=== PATIENT | male | born 1975 | race Caucasian/White ===

== ENCOUNTER 2020-02-02 14:07 | Observation (INO) | payer BC, OTHER, SELFPAY ==
[2020-02-02] MEDS ORDERED: Meclizine HCl 25 MG TAB ONE (14:44)
[2020-02-02 14:58] LABS: #Eosinphils 0.2 thou/uL (0.0-0.7); #Lymphocytes 1.4 thou/uL (1.20-3.40); #Monocytes 0.5 thou/uL (0.11-0.59); #Neutrophils 3.4 thou/uL (1.40-6.50); %Basophils 0.9 % (0.0-1.0); %Eosinophils 4.4 % (0.0-10.0); %Lymphocytes 24.9 % (21.0-51.0); %Monocytes 9.3 % (0.0-10.0); %Neutrophils 60.5 % (42.0-75.0); Hemoglobin 13.9 g/dL (14.0-18.0); Mean Corpuscular HGB CONC 33.3 g/dL (32.0-36.0); Mean Corpuscular Hemoglobin 30.5 pg (27.0-31.0); Mean Corpuscular Volume 91.4 fL (78.0-98.0); Platelet Count 281 thou/uL (130-400); RBC Distribution Width 11.9 % (11.5-14.5); Red Blood Cell (RBC) Count 4.57 mill/uL (4.70-6.10); White Blood Cell (WBC) Count 5.6 thou/uL (4.8-10.8)
[2020-02-02 15:13] LABS: ALT (SGPT) 23 U/L (8-55); AST (SGOT) 16 U/L (5-34); Albumin 4.6 g/dL (3.5-5.0); Alkaline Phosphatase 150 U/L (40-110); Anion Gap 12 mmol/L (10-20); BUN (Urea Nitrogen) 7 mg/dL (8.9-20.6); Bilirubin, Total 0.2 mg/dL (0.2-1.2); Calc. Creatinine Clearance 0 mL/min (70-130); Calcium 9.9 mg/dL (7.8-10.44); Carbon Dioxide 29 mmol/L (22-29); Chloride 100 mmol/L (98-107); Estimated GFR-MDRD Greater than 90; Globulin 3.7 g/dL (2.4-3.5); Glucose 159 mg/dL (70-105); Potassium 4.4 mmol/L (3.5-5.1); Protein, Total 8.3 g/dL (6.0-8.3); Sodium 137 mmol/L (136-145)
[2020-02-02 15:20] LABS: Acetaminophen Less than 6.0 mcg/mL (10.0-30.0); Alcohol Less than 10 mg/dL (Less than 10); CK (CPK) 96 U/L (30-200); Salicylate Less than 8.0 mg/dL (15.0-30.0)
--- NOTE | 2020-02-02 15:22 | CT ---
CT HEAD WITHOUT IV CONTRAST COMPARISON: None. HISTORY: Dizziness. Slow to respond. TECHNIQUE: Axial CT imaging at 5 mm intervals from vertex through skull base without contrast FINDINGS: There is no evidence of an acute infarction, hemorrhage, mass effect, or midline shift. The ventricul ar system is normal in size, shape, and position. Visualized paranasal sinuses are clear. Osseous structures appear intact. IMPRESSION: 1. No acute intracranial abnormality demonstrated.
[2020-02-02 16:09] LABS: Bilirubin Negative (Negative); Blood, Urine Negative (Negative); Clarity Clear (Clear); Glucose, Urine (Dipstick) Normal (Negative); Ketone, Urine Negative (Negative); Leukocyte Negative Leu/uL (Negative); Nitrite Negative (Negative); Protein, Urine (Dipstick) Negative (Neg-Trace); Specific Gravity, Urine 1.005 (1.002-1.036); Urobilinogen Normal mg/dL (Less than 2); pH, Urine 6.5 (5.0-9.0)
[2020-02-02 16:20] LABS: Amphetamine Not Detected (NotDetected); Barbiturates Screen Not Detected (NotDetected); Benzodiazepine Screen Not Detected (NotDetected); Cocaine Metabolite Screen Not Detected (NotDetected); Medtox Control Line Valid? VALID (VALID); Medtox Reader # READER 1; Methadone Not Detected (NotDetected); Methamphetamine Not Detected (NotDetected); Opiate Screen Detected (NotDetected); Oxycodone Screen Not Detected (NotDetected); Phencyclidine (PCP) Not Detected (NotDetected); THC/Cannabinoid Screen Not Detected (NotDetected); Tricyclic Screen Not Detected (NotDetected)
--- NOTE | 2020-02-02 16:54 | PDOC.FPRHP ---
- History of Present Illness Chief Complaint: Dizziness History of Present Illness: Pt is a 44 yo man with PMH of HTN, DM, and HLD who presents to the ED for 2 days of dizziness. He reports that he was working in the yard Sunday when he became very dizzy. He reports that he went into the house, checked his blood sugar (90), and ate something. This did not improve the dizziness and he reports that he "feels drunk". Both him and his report that he has been moving and speaking very slowly since. He also reports an abnormal gait. He denies falls, but says that he has been bumping into arshad while walking. Endorses headache, difficulty sleeping, 20 pound weight loss over 7 weeks without change in diet/exercise. Denies weakness or loss of sensation in his extremities. Of note, patient underwent recent back surgery 7 weeks ago. ED Course: Given meclizine in ED. CT ordered while in ED showed no acute intracranial process - Home Medications Medication Instructions Recorded Confirmed Type Amlodipine [Norvasc] 10 mg PO DAILY 02/02/20 02/02/20 History Citalopram [CeleXA] 20 mg PO DAILY 02/02/20 02/02/20 History Lisinopril 20 mg PO DAILY 02/02/20 02/02/20 History Rosuvastatin Calcium [Crestor] 40 mg PO DAILY 02/02/20 02/02/20 History metFORMIN HCl [Metformin HCl] 1,000 mg PO BID 02/02/20 02/02/20 History sitaGLIPtin Phosphate [Januvia] 100 mg PO DAILY 02/02/20 02/02/20 History HYDROcodone/Acetaminophen [[place] 1 tab PO Q24HR PRN 02/03/20 02/03/20 History 10-325 Tablet] - History PMHx: HTN, DM, Gout, Depression PSHx: Knee, wrist, back, neck, tonsils FHx: Mom - DM, CAD Dad - CAD Social: Dips tobacco ~37 years; never smoked cigarettes, minimal alcohol use, denies drug use - Review of Systems General: reports: fever/chills, weight/appetite/sleep changes, night sweats Eyes: denies: eye pain, vision changes ENT: denies: nasal congestion, rhinorrhea Respiratory: denies: cough, congestion, shortness of breath Cardiovascular: denies: chest pain, edema Gastrointestinal: reports: nausea, constipation. denies: vomiting Genitourinary: denies: incontinence, dysuria Skin: denies: rashes, lesions Musculoskeletal: denies: pain, tenderness Neurological: denies: numbness, weakness Psychological: denies: anxiety, depression - Vital signs BP: 129/77 HR: 63 RR: 16 Tmax: 98.7 Pox: 97% on RA Wt: 119 kg - Physical Exam Constitutional: awake, alert and oriented HEENT: normocephalic and atraumatic, PERRLA Neck: supple, FROM, no LAD Heart: RRR, normal S1/S2, no murmurs/rubs/gallops Lungs: CTAB, no respiratory distress, good air movement Abdomen: soft, non-tender, bowel sounds present Musculoskeletal: normal structure, normal tone Neurological: CN II-XII intact -Neurological: Charlie-hallpike: positive for nystagmus on bilateral testing HINTS: Head impulse - central Nystagmus - peripheral Test of Skew - peripheral Normal strength and sensation throughout Ataxic gait not tested due to recent back surgery and risk for fall Skin: no rash/lesions Heme/Lymphatic: no unusual bruising or bleeding, no purpura, no petechia Psychiatric: normal mood and affect, good judgment and insight, intact recent and remote memory FMR H&P: Results - Labs Result Diagrams: 02/03/20 04:41 02/03/20 04:41 Lab results: WBC 5.6 thou/uL (4.8-10.8) 02/02/20 14:36 Hgb 13.9 g/dL (14.0-18.0) L 02/02/20 14:36 Hct 41.8 % (42.0-52.0) L 02/02/20 14:36 MCV 91.4 fL (78.0-98.0) 02/02/20 14:36 Plt Count 281 thou/uL (130-400) 02/02/20 14:36 Neutrophils % 60.5 % (42.0-75.0) 02/02/20 14:36 Sodium 137 mmol/L (136-145) 02/02/20 14:36 Potassium 4.4 mmol/L (3.5-5.1) 02/02/20 14:36 Chloride 100 mmol/L (98-107) 02/02/20 14:36 Carbon Dioxide 29 mmol/L (22-29) 02/02/20 14:36 BUN 7 mg/dL (8.9-20.6) L 02/02/20 14:36 Creatinine 0.89 mg/dL (0.7-1.3) 02/02/20 14:36 Glucose 159 mg/dL (70-105) H 02/02/20 14:36 Calcium 9.9 mg/dL (7.8-10.44) 02/02/20 14:36 Total Bilirubin 0.2 mg/dL (0.2-1.2) 02/02/20 14:36 AST 16 U/L (5-34) 02/02/20 14:36 ALT 23 U/L (8-55) 02/02/20 14:36 Alkaline Phosphatase 150 U/L (40-110) H 02/02/20 14:36 Creatine Kinase 96 U/L (30-200) 02/02/20 14:36 Serum Total Protein 8.3 g/dL (6.0-8.3) 02/02/20 14:36 Albumin 4.6 g/dL (3.5-5.0) 02/02/20 14:36 Urine Ketones Negative mg/dL (Negative) 02/02/20 15:50 Urine Blood Negative (Negative) 02/02/20 15:50 Urine Nitrite Negative (Negative) 02/02/20 15:50 Ur Leukocyte Esterase Negative [place]/uL (Negative) 02/02/20 15:50 FMR H&P: A/P - Problem List (1) HTN (hypertension) Current Visit: Yes Status: Chronic Code(s): I10 - ESSENTIAL (PRIMARY) HYPERTENSION (2) Diabetes Current Visit: Yes Status: Chronic Code(s): E11.9 - TYPE 2 DIABETES MELLITUS WITHOUT COMPLICATIONS (3) Hyperlipidemia Current Visit: Yes Status: Chronic Code(s): E78.5 - HYPERLIPIDEMIA, UNSPECIFIED (4) Tobacco abuse Current Visit: Yes Status: Chronic Code(s): Z72.0 - TOBACCO USE (5) Gout Current Visit: Yes Status: Chronic Code(s): M10.9 - GOUT, UNSPECIFIED (6) Depression Current Visit: Yes Status: Chronic Code(s): F32.9 - MAJOR DEPRESSIVE DISORDER, SINGLE EPISODE, UNSPECIFIED (7) Ataxia Current Visit: Yes Status: Acute Code(s): R27.0 - ATAXIA, UNSPECIFIED (8) GERD (gastroesophageal reflux disease) Current Visit: Yes Status: Chronic Code(s): K21.9 - GASTRO-ESOPHAGEAL REFLUX DISEASE WITHOUT ESOPHAGITIS - Plan Ataxia 2/2 to CVA vs. BPPV vs. Vestibular Neuritis -pt presents with vertigo, ataxia, and multiple stroke risk factors (DM, HTN, HLD) -HINTS: Head impulse - central; Nystagmus - peripheral; Test of Skew - peripheral -Charlie-Hallpike test: positive for nystagmus on bilateral testing -s/p aspirin, meclizine, and 1 NS in ED -outside of the tPA window -CT: no acute intracranial process -MRI ordered, CTA head/neck ordered -Will check TSH, Mag, Phos, Lipid panel -PT, OT, Speech consulted HTN -home lisinopril and amlodipine DM -home metformin and januvia -SSI and hypoglycemia protocol ordered HLD -continue home rosuvastatin Depression -continue home citalopram GERD -continue home prilosec Hx of recent back surgery -continue home pain medication Gout -aware Tobacco abuse -will provide cessation counseling PPx: Lovenox Diet: NPO, pending speech Code: Full PCP: Ce Dispo: Admit to stroke unit; likely LOS < 48 hrs FMR H&P: Upper Level - Plan Date/Time: 02/02/20 [id number] IIzzy, have evaluated this patient and agree with findings/plan as outlined by internal sales resident. Pertinent changes/additions are listed here. HPI: 44 yo M with PMH of HTN, DM2, Gout, tobacco abuse (dip) presents for 2 days of ataxia. Patient reports he was relaxing at home 2 days ago in the afternoon and felt suddenly dizzy. Reports nausea, denies vomiting. States the room appears to move back and forth. His vertigo is worsened by movement. Reports a frontal sinus headache that started today that is minor. Denies weakness, numbness, syncope. Denies any inciting event. Reports his blood sugar was 90. Patient states that he did not come the ED (due to being uninsured) but set up an appointment with his PCP, who sent him to the ER when he had difficulty ambulating out of his vehicle. Pt reported recent back surgery with 20 lb weight loss over the past 7 weeks. Denies night sweats. Does report he occasionally goes from very hot to very cold but denied fever. In the ED, CT head was negative. CXR was wnl. CBC and CMP were unremarkable except for an alk phos of 150. UA was normal. UDS was + for opiates (he takes opiates for his back surgery). EKG showed NSR. PE: VSS. Cardiac: RRR, no murmurs rubs or gallops. Lungs BCTA. Right sided nystagmus. Positive charlie-hallpike exam bilaterally. Hints exam was consistent with peripheral lesion except for head impulse test. A/P: R/O CVA/posterior stroke: -Ataxic gait, postural instability. CT head negative. HINTS exam reassuring. Charlie Hallpike exam positive bilaterally. Otherwise CN exam WNL. Diff dx includes CVA, BPPV, menieres, vestibular neuritis. -Patient is outside of window for any interventions for stroke, >48 hrs since symptoms began -MRI pending, CTA head/neck pending -Mag, Phos, TSH pending -Patient was given ASA, meclizine, 1 L NS -PT/OT/Speech -Resume medications for HTN DM, HTN, HLD: continue home medications. Code status: Patient is full code. PCP: Ce DVT ppx: lovenox Diet: NPO for speech Dispo: Stroke Obs, LOS <48 hours L Criss PRINCE PGY3 See internal sales notes for further details. Addendum - Attending - Attending Attestation Date/Time: 02/03/20 1051 I personally evaluated the patient and discussed the management with the team. I agree with the History, Examination, Assessment and Plan documented above with any addition or exceptions noted below. Await MRI.
[2020-02-02] MEDS ORDERED: Ondansetron ODT 4 MG TAB PO PRN (17:34)
[2020-02-02] MEDS ORDERED: Acetaminophen 325 MG TAB PO PRN (17:34)
[2020-02-02] MEDS ORDERED: Ondansetron PF 4 MG/2 ML Vial IVP PRN (17:34)
[2020-02-02] MEDS ORDERED: Dextrose 50% Abboject 50 ML SYRINGE SLOW IVP PRN (17:34)
[2020-02-02] MEDS ORDERED: Insulin Regular 300 UNITS/3 ML VIAL SC PRN (17:34)
[2020-02-02] MEDS ORDERED: Dextrose 5% in Water 1,000 ML IV PRN (17:34)
[2020-02-02] MEDS ORDERED: Aspirin 325 MG TAB ONE (17:52)
[2020-02-02 18:49] LABS: Magnesium 1.9 mg/dL (1.6-2.6)
--- NOTE | 2020-02-02 20:06 | CT ---
CT ANGIOGRAM HEAD CT ANGIOGRAM NECK: Date: 02-02-2020 History: Dizziness Technique: Axial CT imaging at 1.25 mm intervals obtained from the lung apices through the vertex wit h IV contrast using CT angiogram protocol. Coronal and sagittal 3D reformatted imaging obtained. FINDINGS: The visualized lung apices appear unremarkable. There is polypoid mucosal thickening involving the alveolar recess of bilateral maxillary sinuses. The retro antral fat, parapharyngeal fat, parotid glands and submandibular glands appear grossly unre markable bilaterally. The tonsillar pillars, epiglottis and pre-epiglottic fat, hyoid bone, thyroid c artilage, cricoid cartilage, thyroid gland, and level of glottis appear grossly unremarkable. The origin of the innominate artery, left subclavian artery, left common carotid artery, and right biggs bclavian artery appears unremarkable. The origin of bilateral vertebral arteries appears unremarkable as well. The vertebral arteries appear grossly unremarkable bilaterally. On the basis of NASCET criteria, there is no hemodynamically significant stenosis seen involving the common carotid artery or internal carotid artery on either side. There is mild partially calcified pl aque at the origin of the right internal carotid artery. The M1 segment and the A1 segment appears grossly unremarkable bilaterally. The MCA bifurcation and t he distal MCA branches appear grossly unremarkable. Distal RASHEL branches are unremarkable. The basilar artery and its branches appear patent. No anterior or posterior secular aneurysm, high gr talat stenosis, or vascular occlusion is appreciated. If there is clinical concern for acute infarction, follow up brain MRI is suggested. There is no lymphadenopathy in the neck. No worrisome lytic or blastic bone lesions. There are degenerative changes at the atlantoaxial interspace. There is anterior fusion hardware at C 5-6 and C6-7 and there is hardware at C5-6 and C6-7 within bilateral facet joints. IMPRESSION: 1. No acute findings on CT angiogram of head/neck. POS: OFF
[2020-02-02] MEDS ORDERED: Acetaminophen 325 MG TAB ONE (20:47)
[2020-02-02] MEDS ORDERED: Diazepam 5 MG TAB PO SCH ×3 (21:15→21:30)
[2020-02-02 23:10] VITALS: BMI 34.1
[2020-02-02] MEDS ORDERED: Melatonin 3 MG TAB PO PRN (23:53)
[2020-02-03 04:56] LABS: #Eosinphils 0.3 thou/uL (0.0-0.7); #Lymphocytes 1.7 thou/uL (1.20-3.40); #Monocytes 0.5 thou/uL (0.11-0.59); #Neutrophils 3.1 thou/uL (1.40-6.50); %Basophils 0.3 % (0.0-1.0); %Eosinophils 4.6 % (0.0-10.0); %Lymphocytes 30.5 % (21.0-51.0); %Monocytes 8.2 % (0.0-10.0); %Neutrophils 56.5 % (42.0-75.0); Mean Corpuscular HGB CONC 32.9 g/dL (32.0-36.0); Mean Corpuscular Hemoglobin 29.9 pg (27.0-31.0); Mean Corpuscular Volume 90.9 fL (78.0-98.0); Mean Platelet Volume 8.1 fL (7.4-10.4); Platelet Count 243 thou/uL (130-400); Red Blood Cell (RBC) Count 4.34 mill/uL (4.70-6.10); White Blood Cell (WBC) Count 5.5 thou/uL (4.8-10.8)
[2020-02-03 05:22] LABS: Anion Gap 12 mmol/L (10-20); BUN (Urea Nitrogen) 6 mg/dL (8.9-20.6); Calc. Creatinine Clearance 197 mL/min (70-130); Calcium 9.6 mg/dL (7.8-10.44); Carbon Dioxide 27 mmol/L (22-29); Cardiac Risk 4.2 (Less than 4.5); Chloride 104 mmol/L (98-107); Cholesterol 144 mg/dl (< 200 Desired); Estimated GFR-MDRD Greater than 90; Glucose 132 mg/dL (70-105); HDL Cholesterol 34 mg/dL (>60 Neg Risk); LDL Cholesterol, Calculated 84 mg/dL; Potassium 4.1 mmol/L (3.5-5.1); Sodium 139 mmol/L (136-145); Triglycerides 130 mg/dL (Less than 150)
--- NOTE | 2020-02-03 05:41 | PDOC.FM ---
- Subjective Subjective: Reports difficulty sleeping overnight, continued dizziness, and unsteadiness on his feet. Denies N/V, chest pain, SOB. - Objective MAR Reviewed: Yes Vital Signs & Weight: Vital Signs (12 hours) Temp Pulse Resp BP Pulse Ox 02/03/20 03:57 97.8 F 63 18 134/94 H 98 02/02/20 23:08 97.9 F 58 L 18 143/87 H 97 Weight Weight 123.785 kg Result Diagrams: 02/03/20 04:41 02/03/20 04:41 Phys Exam - Physical Examination Constitutional: NAD Neck: supple, full ROM Respiratory: no wheezing, no rales, no rhonchi, clear to auscultation bilateral Cardiovascular: RRR, no significant murmur Gastrointestinal: soft, non-tender Musculoskeletal: no edema Neurological: normal sensation, moves all 4 limbs continued nystagmus to the right Psychiatric: normal affect Skin: no rash Dx/Plan (1) HTN (hypertension) Code(s): I10 - ESSENTIAL (PRIMARY) HYPERTENSION Status: Chronic (2) Diabetes Code(s): E11.9 - TYPE 2 DIABETES MELLITUS WITHOUT COMPLICATIONS Status: Chronic (3) Hyperlipidemia Code(s): E78.5 - HYPERLIPIDEMIA, UNSPECIFIED Status: Chronic (4) Tobacco abuse Code(s): Z72.0 - TOBACCO USE Status: Chronic (5) Gout Code(s): M10.9 - GOUT, UNSPECIFIED Status: Chronic (6) Depression Code(s): F32.9 - MAJOR DEPRESSIVE DISORDER, SINGLE EPISODE, UNSPECIFIED Status: Chronic (7) Ataxia Code(s): R27.0 - ATAXIA, UNSPECIFIED Status: Acute (8) GERD (gastroesophageal reflux disease) Code(s): K21.9 - GASTRO-ESOPHAGEAL REFLUX DISEASE WITHOUT ESOPHAGITIS Status: Chronic - Plan Plan: Ataxia 2/2 to CVA vs. BPPV vs. Vestibular Neuritis -pt presents with vertigo, ataxia, and multiple stroke risk factors (DM, HTN, HLD) -HINTS: Head impulse - central; Nystagmus - peripheral; Test of Skew - p eripheral -[place]-Hallpike test: positive for nystagmus on bilateral testing -s/p aspirin, meclizine, and 1 NS in ED -outside of the tPA window -CT: no acute intracranial process -CTA head/neck: no acute findings -MRI ordered -TSH, Mag, Phos, Lipid panel all within normal limits -Passed dysphagia testing -q4hr neuro checks HTN -home lisinopril and amlodipine DM -home metformin and januvia -SSI and hypoglycemia protocol ordered HLD -continue home rosuvastatin Depression -continue home citalopram GERD -continue home prilosec Hx of recent back surgery -continue home pain medication Gout -aware Tobacco abuse -will provide cessation counseling PPx: Lovenox Diet: CC Code: Full PCP: Ce Dispo: pending MRI results and further medical management
[2020-02-03] MEDS ORDERED: metFORMIN 500 MG TAB PO SCH (08:00)
[2020-02-03] MEDS ORDERED: Lorazepam 0.5 MG TAB PO SCH (08:15)
[2020-02-03] MEDS ORDERED: Lisinopril 20 MG TAB PO SCH (09:00)
[2020-02-03] MEDS ORDERED: Enoxaparin Sodium 40 MG/0.4 ML SYRINGE SC SCH (09:00)
[2020-02-03] MEDS ORDERED: Alogliptin 25 MG TAB PO SCH (09:00)
[2020-02-03] MEDS ORDERED: Rosuvastatin 20 MG TAB PO SCH (09:00)
[2020-02-03] MEDS ORDERED: Citalopram 20 MG TAB PO SCH (09:00)
[2020-02-03] MEDS ORDERED: Amlodipine 10 MG TAB PO SCH (09:00)
--- NOTE | 2020-02-03 09:24 | MRI ---
MRI BRAIN WITHOUT CONTRAST: HISTORY: CVA, dizziness CORRELATION: CT scan from 02/02/2020. FINDINGS: No restricted diffusion is seen. The ventricular size is appropriate and the basilar cisterns are pat ent. No evidence of acute infarct, hemorrhage, midline shift or abnormal extra-axial fluid collections is seen. There is mucosal disease in the paranasal sinuses. IMPRESSION: No evidence of acute intracranial process.
[2020-02-03] MEDS ORDERED: Polyethylene Glycol 3350 17 GM Packet PO SCH (10:00)
[2020-02-03 11:50] VITALS: BP 112/72; TEMP 98.1
--- NOTE | 2020-02-03 11:52 | PRG ---
DATE OF SERVICE: 02/03/2020 Mr. Eckert is a pleasant 44-year-old man who was admitted with acute vertigo yesterday. He also had a positive head impulse test, and we had therefore ordered MRI after his CTA, and CT of the brain were all normal. The MRI report recently returned this morning is as follows: There was no restricted diffusion seen. Ventricular size was normal. There was no evidence of acute infarct, hemorrhage, midline shift, or any abnormal extra-axial fluid collections seen. Impression was finally no evidence of an acute intracranial process. It would be appeared that Mr. Eckert has benign positional vertigo, which we can treat symptomatically. Job ID: [id number]
[2020-02-03 13:05] LABS: SARS-CoV-2 MS2 Positive; SARS-CoV-2 N Gene Negative; SARS-CoV-2 S Gene Negative; SARS-CoV-2 by NAA Not Detected (NotDetected); SARS-CoV-2 orf1ab Negative
--- NOTE | 2020-02-04 00:30 | DIS ---
DATE OF ADMISSION: 02/02/2020 DATE OF DISCHARGE: 02/03/2020 DISCHARGE ATTENDING: Dr. Luis Santana. CONSULTATIONS: PT, Speech. PROCEDURES/IMAGIN. Asif CT, no acute intracranial abnormalities demonstrated. 2. CTA of the head and neck, no acute findings on CT angio of head and neck. 3. MRI of the brain, no evidence of acute intracranial process. PRIMARY DIAGNOSIS: Benign paroxysmal positional vertigo. SECONDARY DIAGNOSES: 1. Hypertension. 2. Diabetes. 3. Hyperlipidemia. 4. Depression. 5. Gastroesophageal reflux disease. 6. Tobacco abuse. DISCHARGE MEDICATIONS: 1. Amlodipine 10 mg p.o. daily. 2. Metformin 1000 mg p.o. b.i.d. 3. Lisinopril 20 mg daily. 4. Citalopram 20 mg daily. 5. Sitagliptin 100 mg daily. 6. Rosuvastatin 20 mg daily. 7. Hydrocodone/acetaminophen 10/325, 1 tab p.o. q.24 hours. 8. Gemfibrozil 600 mg p.o. b.i.d. a.c. 9. Orphenadrine Citrate 100 mg p.o. p.r.n. 10. Omeprazole 20 mg p.o. daily. 11. Meclizine 25 mg p.o. daily as needed. DISCONTINUED MEDICATIONS: None. HOSPITAL COURSE: The patient is a 44-year-old man with past medical history of hypertension, diabetes, hyperlipidemia, who presented to the hospital for 48 hours of dizziness and ataxic gait. The patient was found to have nystagmus of his eyes on Bethesda-Hallpike maneuver and his HINTS exam gave a mixed picture for gross central and peripheral lesions. Due to the concern for CVA, CT, CTA, and MRI were all ordered. All were negative for acute intracranial processes. A TSH, mag, phos, and lipid panel were also ordered, all of which appeared normal. At this time, a diagnosis of BPPV was made. The patient was evaluated by PT and Speech. It was recommended that the patient followup with his primary care physician for further evaluation of BPPV. The patient was given meclizine on discharge to help with symptomatic control. DISPOSITION: Stable. DISCHARGE INSTRUCTIONS: Location: Home. Activity: As tolerated. Diet: Diabetic and heart-healthy. Followup: The patient should follow up with Dr. Encinas in 3 to 5 days. Job ID: [id number]
--- NOTE | 2020-02-07 12:20 | EKG ---
Test Reason : Blood Pressure : / mmHG Vent. Rate : 071 BPM Atrial Rate : 071 BPM P-R Int : 164 ms QRS Dur : 084 ms QT Int : 396 ms P-R-T Axes : 022 000 -14 degrees QTc Int : 430 ms Normal sinus rhythm Minimal voltage criteria for LVH, may be normal variant Nonspecific ST and T wave abnormality Abnormal ECG Confirmed by RADHA ROD ([id number]), city editor MECHE ARIAS ([id number]) on 02/07/2020 12:19:59 PM Referred By: Confirmed By:RADHA ROD
== END 2020-02-03 14:11 | disposition home or self-care (01) ==
LOC: ERS 14:07 → 2SE 17:17 → UNDODISOB 02-03 13:31
PROVIDERS: ADMIT Emergency Medicine; ATTEND Emergency Medicine
DX: H81.10 Benign paroxysmal vertigo, unspecified ear (principal); I10 Essential (primary) hypertension; E11.9 Type 2 diabetes mellitus without complications; E78.5 Hyperlipidemia, unspecified; F32.9 Major depressive disorder, single episode, unspecified; K21.9 Gastro-esophageal reflux disease without esophagitis; F17.290 Nicotine dependence, other tobacco product, uncomplicated; M10.9 Gout, unspecified; Z79.84 Long term (current) use of oral hypoglycemic drugs; Z79.899 Other long term (current) drug therapy; Z20.828 Contact with and (suspected) exposure to other viral communicable diseases
CPT/HCPCS: 36415; 36416; 70450; 70496; 70498; 70551; 80048; 80053; 80061; 80306; 80307; 81003; 82550; 83735; 84100; 84443; 85025; 87635; 93005; 96360; 96372; G0378; J1650; J1815; U0003